=== PATIENT | female | born 1945 | race Caucasian/White ===

== ENCOUNTER 2019-08-26 19:37 | Inpatient (IN) | payer MEDICARE, BC ==
[~2019-08-26] VITALS: Ht 170.2 cm; Wt 90.7 kg
--- NOTE | 2019-08-26 19:56 | NUR ---
seen and examined by dr. valdivia
[2019-08-26] MEDS ORDERED: HYDROCODONE/APAP 5/325MG 1 EACH TABLET ONE (19:59)
[2019-08-26 20:00] VITALS: BP 149/61
[2019-08-26] MEDS ORDERED: HYDROCODONE/APAP 5/325MG 1 EACH TABLET PO ONE (20:00)
--- NOTE | 2019-08-26 20:00 | NUR ---
PT BIB [facility] FROM HOME W/ AT BEDSIDE WITH C/O PAIN IN LEFT THIGH. PT ALSO HAS SWELLING ON THE RIGHT FRONTAL REGION ABOVE THE RIGHT EYE FROM FALLING. PT STATES SHE TAKES BABY ASPIRIN AT HOME AND MEDS FOR HIGH BLOOD PRESSURE. PT STATES PAIN IN HER RIGHT ANKLE WHEN SHE EXTENDS IT. AAOX4. NO SOB. NOT IN ANY DISTRESS. BREATHING EVENLY AND UNLABORED. AT BEDSIDE. CONNECTED TO THE MONITOR.
--- NOTE | 2019-08-26 20:03 | NUR ---
PT SENT TO CT
--- NOTE | 2019-08-26 20:18 | NUR ---
PATIENT RETURNED FROM CT
--- NOTE | 2019-08-26 20:27 | NUR ---
PATIENT GETTING AN XRAY
--- NOTE | 2019-08-26 20:56 | NUR ---
[facility] PAGED DR BRASHER
--- NOTE | 2019-08-26 21:02 | NUR ---
CALLED [facility] PAGED ROHINI
--- NOTE | 2019-08-26 21:09 | NUR ---
TECHNICAL ASST AT BEDSIDE FOR XRAY
[2019-08-26] MEDS ORDERED: IV D5/0.45 NACL 1,000 ML IV PRN (21:19)
--- NOTE | 2019-08-26 21:26 | NUR ---
BLOOD DRAWN AND SENT TO LAB
[2019-08-26] MEDS ORDERED: HYDROCODONE/APAP 5/325MG 1 EACH TABLET PO PRN (21:30)
[2019-08-26] MEDS ORDERED: ACETAMINOPHEN 325 MG TABLET PO PRN (21:30)
[2019-08-26] MEDS ORDERED: MORPHINE SULFATE INJ 2 MG/ML DISP.SYRIN IV PRN (21:30)
[2019-08-26] MEDS ORDERED: Z GUARD REMEDY 2 OZ OINT TP PRN (21:30)
[2019-08-26] MEDS ORDERED: MAGNESIUM HYDROXIDE 30 ML UDC PO PRN (21:30)
[2019-08-26] MEDS ORDERED: ONDANSETRON HCL/PF 4 MG/2 ML VIAL IVP PRN (21:30)
[2019-08-26] MEDS ORDERED: MAG HYDROX/AL HYDROX/SIMETH 30 ML UDC PO PRN (21:30)
--- NOTE | 2019-08-26 21:43 | NUR ---
report given to Morenita GARCIA.
[2019-08-26 21:45] LABS: BASOPHILS # (AUTO) 0.1 /CMM (0.0-0.2); BASOPHILS % (AUTO) 0.6 % (0.0-2.0); CALCIUM, SERUM 8.8 mg/dL (8.5-10.1); CREATININE 0.9 mg/dL (0.6-1.3); EOSINOPHILS % (AUTO) 0.7 % (0.0-6.0); HEMATOCRIT 35 % (33-45); HEMOGLOBIN 11.9 g/dL (11.5-14.8); LYMPHOCYTES # (AUTO) 1.3 /CMM (0.8-4.8); LYMPHOCYTES % (AUTO) 7.9 % (20.0-44.0); MEAN CORPUSCULAR HGB CONC 34 g/dl (31.0-36.0); MEAN CORPUSCULAR VOLUME 92 fL (82-100); MONOCYTES # (AUTO) 0.6 /CMM (0.1-1.30); MONOCYTES % (AUTO) 3.5 % (2.0-12.0); NEUTROPHILS # (AUTO) 14.5 /CMM (1.8-8.9); NEUTROPHILS % (AUTO) 87.3 % (43.0-81.0); PLATELET COUNT (AUTO) 121 /CMM (150-450); POTASSIUM 4.3 mmol/L (3.5-5.1); RED BLOOD CELL COUNT(AUTO) 3.82 MIL/uL (4.0-5.2); WHITE BLOOD COUNT (AUTO) 16.6 K/uL (4.3-11.0)
[2019-08-26 21:55] VITALS: BP 149/61
--- NOTE | 2019-08-26 21:55 | NUR ---
RN ADMITTING NOTES: PATIENT ARRIVED TO UNIT VIA GURNEY AND ASSISTED TO BED BY NURSING STAFF. PATIENT IS A 74-YEAR-OLD FEMALE WITH DX: SUBDURAL HEMATOMA AND S/P FALL. AAOX4. NO RESPIRATORY DISTRESS OR CHANGES IN BASELINE LEVEL OF CONSCIOUSNESS. VITAL SIGNS TAKEN. PHOTOS OF SKIN ISSUES TAKEN AND PLACED IN CHART. PATIENT UNABLE AND REFUSES TO TURN TO CHECK POSTERIOR PART OF BODY FOR ASSESSMENT. PATIENT WISHES TO BE FULL CODE. DR. NOVA AWARE. PATIENT C/O 05/27 (R) LEG PAIN. PER REPORT FROM ER NURSE, PATIENT RECEIVED A DOSE OF NORCO. PER PATIENT, PAIN MED INEFFECTIVE. WILL ADMINISTER MORPHINE ORDERED. PLACED ON DITCHING MACHINE OPERATOR. (L) AC #18 INTACT, PATENT, AND FLUSHING WELL. SAFETY PRECAUTIONS IMPLEMENTED. BED LOCKED AND IN LOWEST POSITION. PER PATIENT'S , HE WILL BRING HOME ALL HER PERSONAL BELONGINGS WELL BRING IN HOME MED LIST TOMORROW. CALL LIGHT PLACED WITHIN REACH. WILL CONT. TO MONITOR.
[2019-08-26 22:18] LABS: BAND % (MANUAL) 6 % (0.0-5.0); LYMPHOCYTES % (MANUAL) 11 % (16-48); MONOCYTES % (MANUAL) 4 % (0-11.0); NEUTROPHILS % (MANUAL) 79 (42-76)
[2019-08-26 22:49] VITALS: BP 149/61
[2019-08-26] MEDS ORDERED: SIMV-49 PO (22:52)
[2019-08-26] MEDS ORDERED: NEBI5TAB8 PO (22:52)
[2019-08-26] MEDS ORDERED: LISI1TAB28 PO (22:52)
--- NOTE | 2019-08-26 23:00 | NUR ---
RN NOTE: DR. NOVA MADE AWARE OF PATIENT'S LABS, WBC 16.6 AND SODIUM 129. Addendum: 08/27/19 at 0221 by SHABANA GUIDRY RN PATIENT UNABLE TO TURN AND MOVE DUE TO SEVERE PAIN. MADE AWARE. PER , OK TO PLACE MORAN CATHETER. PATIENT CONSENTED TO MORAN CATHETER. CHARGE NURSE INSERTED MORAN CAREFULLY WITHOUT MOVING RLE, PATIENT TOLERATED PROCEDURE WELL. MORAN CATH INTACT, PATENT, AND DRAINING CLEAR YELLOW URINE. Addendum: 08/27/19 at 0619 by SHABANA GUIDRY RN 2300: DR. NOVA MADE AWARE OF MED RECON. PER PATIENT'S , HE WILL BRING IN THE REST OF THE MEDS TODAY.
--- NOTE | 2019-08-26 23:15 | NUR ---
RN NOTE: PATIENT SEEN BY DR. NOVA AT BEDSIDE. ORDERED MORPHINE SULFATE 2 MG NOW AND OK TO INSERT MORAN. Addendum: 08/27/19 at 3 by SHABANA GUIDRY RN AT 2314, PATIENT REQUESTING FOR WATER. PER , OK TO GIVE WATER AND PO MEDS DURING THIS SHIFT. Addendum: 08/27/19 at 022 by SHABANA GUIDRY RN AT 5, DR. NOVA SPOKE WITH PATIENT AND MADE AWARE THAT DR. BRASHER (ORTHO) AND DR. EVANS (NEUROSURGEON) WILL SEE PATIENT IN AM.
[2019-08-26] MEDS ORDERED: MORPHINE SULFATE INJ 2 MG/ML DISP.SYRIN IV ONE (23:30)
[2019-08-27] VITALS: BP 140/64
[2019-08-27] MEDS ORDERED: IV D5/ 0.9% NACL 1,000 ML IV SCH
[2019-08-27] MEDS ORDERED: MORPHINE SULFATE INJ 4 MG/ML DISP.SYRIN IV PRN (00:30)
--- NOTE | 2019-08-27 00:30 | NUR ---
RN NOTE: PATIENT C/O HEADACHE. TYLENOL GIVEN ORDERED. NO CHANGES IN BASELINE LOC. DR. NOVA MADE AWARE.
[2019-08-27 04:00] VITALS: BP 157/74
--- NOTE | 2019-08-27 04:30 | NUR ---
RN NOTE: PATIENT C/O RIGHT KNEE/LEG PAIN. OFFERED NORCO TO PATIENT, REMOVED MEDICATION FROM OMNICELL, BUT THEN PATIENT CHANGED HER MIND AND SAID SHE WANTS TO WAIT FOR MORPHINE INSTEAD. OFFERED RISKS AND BENEFITS. NORCO MED WASTED AND WITNESSED BY CHARGE NURSE FRANCISCO.
[2019-08-27 07:05] LABS: BASOPHILS % (AUTO) 0.2 % (0.0-2.0); HEMATOCRIT 31 % (33-45); HEMOGLOBIN 10.6 g/dL (11.5-14.8); LYMPHOCYTES # (AUTO) 0.6 /CMM (0.8-4.8); LYMPHOCYTES % (AUTO) 5.6 % (20.0-44.0); MEAN CORPUSCULAR HGB CONC 35 g/dl (31.0-36.0); MEAN CORPUSCULAR VOLUME 92 fL (82-100); MONOCYTES # (AUTO) 0.7 /CMM (0.1-1.30); MONOCYTES % (AUTO) 6.5 % (2.0-12.0); NEUTROPHILS # (AUTO) 9.9 /CMM (1.8-8.9); NEUTROPHILS % (AUTO) 87.7 % (43.0-81.0); PLATELET COUNT (AUTO) 140 /CMM (150-450); RED BLOOD CELL COUNT(AUTO) 3.34 MIL/uL (4.0-5.2); WHITE BLOOD COUNT (AUTO) 11.3 K/uL (4.3-11.0)
--- NOTE | 2019-08-27 07:15 | NUR ---
RN CLOSING NOTES: PATIENT ASLEEP BUT EASILY AROUSABLE. NO RESPIRATORY DISTRESS. NO C/O PAIN AT THIS TIME. POSSIBLE ORTHOPEDIC SURGERY TODAY DUE TO RIGHT FEMUR FRACTURE. NEUROSURGEON WILL ALSO COME SEE THE PATIENT TODAY. REMAINS NPO EXCEPT MEDS PER DR. NOVA. ENDORSED TO AM SHIFT NURSE FOR CONTINUITY OF CARE. Addendum: 08/27/19 at 0724 by SHABANA GUIDRY RN ENDORSED TO AM SHIFT NURSE THAT PATIENT'S WILL PROVIDE THE HOME MEDICATION LIST THIS MORNING.
[2019-08-27 07:17] LABS: CALCIUM, SERUM 8.6 mg/dL (8.5-10.1); CREATININE 0.8 mg/dL (0.6-1.3); MAGNESIUM 1.8 mg/dL (1.8-2.4); PHOSPHORUS 3.4 mg/dL (2.5-4.9); POTASSIUM 3.8 mmol/L (3.5-5.1)
[2019-08-27 08:00] VITALS: BP 150/72
[2019-08-27] MEDS ORDERED: MORPHINE SULFATE INJ 2 MG/ML DISP.SYRIN IV PRN (08:30)
--- NOTE | 2019-08-27 08:58 | NUR ---
relayed ct head result to alberto and dr. gibbs,no new orders.will continue to monitor.
[2019-08-27] MEDS ORDERED: HYDROCHLOROTHIAZIDE 12.5 MG CAPSULE PO SCH (09:00)
[2019-08-27] MEDS ORDERED: LISINOPRIL (20MG) 20 MG TABLET PO SCH (09:00)
[2019-08-27] MEDS ORDERED: METOPROLOL TARTRATE 25 MG TABLET PO SCH (09:00)
--- NOTE | 2019-08-27 09:52 | NUR ---
per alberto, dr foreman wants to transfer patient. initiating.
[2019-08-27] MEDS ORDERED: HYDROMORPHONE INJ 0.5 MG/0.5 ML SYRINGE IV PRN (10:30)
[2019-08-27] MEDS: HYDROMORPHONE 1 MG/1 ML DISP.SYRIN IV PRN ×2 (10:32→14:12)
[2019-08-27 12:00] VITALS: BP 176/70
[2019-08-27] MEDS ORDERED: hydrALAZINE HCL IV 20 MG VIAL IV PRN (12:00)
[2019-08-27 12:52] LABS: APPEARANCE,URINE CLEAR (CLEAR); BILIRUBIN,URINE NEGATIVE (NEGATIVE); BLOOD, URINE LARGE Ery/uL (NEGATIVE); COLOR,URINE YELLOW (YELLOW); KETONES,URINE NEGATIVE (NEGATIVE); LEUKOCYTE ESTERASE ,URINE NEGATIVE (NEGATIVE); NITRITE, URINE NEGATIVE (NEGATIVE); PROTEIN,URINE TRACE mg/dl (NEGATIVE); UGLUCOSE NEGATIVE (NEGATIVE); UROBILINOGEN,URINE 0.2 EU/dL (0.2)
[2019-08-27 12:59] LABS: BACTERIA,URINE Few /HPF (None Seen); RBC,URINE TOO NUMEROUS TO COUN /HPF (0-2); SQUAMOUS EPITHELIAL CELL,UR Few /HPF (None Seen); WBC,URINE 0-2 /HPF (0-3)
--- NOTE | 2019-08-27 13:00 | NUR ---
contacted window caser to follow up with transportation team. olive picker time was given as [phone]
--- NOTE | 2019-08-27 13:30 | NUR ---
transportation dispatch manager ann insisting that patient needs to be SPLINTED prior to transportation due to "the leg not fitting" , nursing supervisor silvering department aware. ER doctor contacted
--- NOTE | 2019-08-27 14:16 | NUR ---
er clay processing labourer assisting in reposition of leg
--- NOTE | 2019-08-27 14:26 | NUR ---
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 124/57 BP, A/Ox4, speaking, awake, alert, states 10/27 pain Addendum: 08/27/19 at 1439 by BILLY TOSCANO RN patient left with all belongings and paperwork. woody at bedside and aware. no wound pics to be taken, taken last night
[2019-08-27] MEDS ORDERED: SIMVASTATIN 20 MG TABLET PO SCH (18:00)
[2019-08-27] MEDS ORDERED: SIMVASTATIN 40 MG TABLET PO SCH (18:00)
== END 2019-08-27 14:25 | disposition home or self-care (01) | DRG 964 ==
LOC: ER 19:42 → TELE-TD 21:37
PROVIDERS: ADMIT Internal Medicine; ATTEND Nurse Practitioner Acute Care
DX: S06.5X0A Traumatic subdural hemorrhage without loss of consciousness, initial encounter (principal); S72.91XA Unspecified fracture of right femur, initial encounter for closed fracture; E87.1 Hypo-osmolality and hyponatremia; Y92.007 Garden or yard of unspecified non-institutional (private) residence as the place of occurrence of the external cause; I10 Essential (primary) hypertension; E78.5 Hyperlipidemia, unspecified; D72.829 Elevated white blood cell count, unspecified; Z88.0 Allergy status to penicillin; Z88.7 Allergy status to serum and vaccine; W10.8XXA Fall (on) (from) other stairs and steps, initial encounter; W18.00XA Striking against unspecified object with subsequent fall, initial encounter; Y93.01 Activity, walking, marching and hiking; Z79.899 Other long term (current) drug therapy
CPT/HCPCS: 36415; 70450-TC; 71045-TC; 73552; 80048-TC; 81000-TC; 83735-TC; 84100-TC; 85025-TC; 85730-TC; 86850-TC; 87081-TC; 87086-TC; G0378; J0360; J1170; J2270; J3490; J7042